=== PATIENT | male | born 1985 | race Hispanic/Latino ===

== ENCOUNTER 2017-03-21 14:35 | Emergency (ER) | payer OTHER ==
[~2017-03-21] VITALS: Ht 180.3 cm; Wt 74.8 kg
[~2017-03-21 14:35] MED LIST: AUGMENTIN 875 M1 TAB PO; LEVSIN0.125 MG PO; ZOFRAN4 MG PO
[2017-03-21 14:40] VITALS: BP 130/83
[2017-03-21] MEDS ORDERED: KEFLEX500 M1 PO (14:56)
--- NOTE | 2017-03-21 14:56 | ED NOSE COMPLAINT ---
History of Present Illness General Chief Complaint: Animal/Insect Bite Stated Complaint: ? SPIDER BITE TO NOSE/CELLULITIS Source: patient, old records Exam Limitations: no limitations Vital Signs & Intake/Output Vital Signs & Intake/Output ED Intake and Output 03/22 0000 03/21 1200 Intake Total 0 Output Total Balance 0 Intake, Oral 0 Patient 165 lb Weight Weight Reported by Patient Measurement Method Allergies Coded Allergies: NO KNOWN ALLERGIES (04/25/13) Triage Note: PT TO ED FOR ?CELLULITIS TO NOSE, STATING HE WOKE UP IN THE MIDDLE OF THE NIGHT AND FELT PAIN IN HIS NOSE, NOSE APPEARS SWOLLEN AND RED. Triage Nurses Notes Reviewed? yes Onset: Abrupt Duration: day(s): (1), constant Timing: remote history Injury Environment: home Severity: mild, moderate Severity Numbers: 5 No Modifying Factors: none Associated Symptoms: DENIES HPI: 31-year-old male presents to ER for evaluation complaining of pain redness swelling to the tip of his left nostril since this morning. He states he woke in the middle the night with pain and states he believes he is bit by something while in bed. He denies any pain inside of his nose, no difficulty breathing through his nose. He denies sore throat and rhinorrhea epistaxis fever chills. He denies any other facial pain or swelling no recent dental work. No modifying factors or associated symptoms otherwise. (PEÑA FLANAGAN) Reconcile Medications Cephalexin (Keflex) 500 MG CAPSULE 1 CAP PO TID PRN cellulitis Sulfamethoxazole/Trimethoprim (Bactrim Ds Tablet) 800 MG-160 MG TABLET 1 TAB PO BID CELLULITIS (DORINDA MUJICA,JAIRO) Past History Travel History Traveled to [place] past 21 day No Medical History Any Pertinent Medical History? see below for history Neurological: NONE EENT: NONE Cardiovascular: NONE Respiratory: NONE Gastrointestinal: NONE Hepatic: NONE Renal: NONE Musculoskeletal: NONE Psychiatric: NONE Endocrine: NONE Blood Disorders: NONE Cancer(s): leukemia Tetanus Vaccine: 11/09/14 Surgical History Surgical History: non-contributory Psychosocial History What is your primary language Chinese Tobacco Use: Never used ETOH Use: occasional use Illicit Drug Use: denies illicit drug use Family History Hx Contributory? No (PEÑA FLANAGAN) Review of Systems Review of Systems Constitutional: Reports: see HPI. All Other Systems: Reviewed and Negative Comments Review of systems: See HPI, All other systems negative. Constitutional, no chills no fever, no malaise HEENT:no sore throat no congestion, Cardiovascular: No chest pain , no palpitation , Skin: no rashes, no change in skin Respiratory: No dyspnea no cough no sputum GI: No nausea no vomiting, : No dysuria Muscle skeletal: No joint paiN, no neck pain, Neurologic: No numbness no confusion, no headache Psych: No stress Heme/endocrine: No bruising Immunology: No lymphadenopathy (PEÑA FLANAGAN) Physical Exam Physical Exam General Appearance: well developed/nourished, no apparent distress, alert, awake , comfortable Nose: ERYTHEMA OVER THE L EXTERNAL NOSTRIL, THE NOSTRIL IS WNL, NO HEMATOMA, NO ABSCESS Comments: Well-developed well-nourished patient in no apparent distress. Head/Face: Atraumatic, no maxillary/frontal sinus tenderness, no facial swelling Eyes: PERRL, EOMI, no conjunctival injection. Ear:External auditory canals clear, no erythema, no FB. Nose: atraumatic.Normal inspection: No bleeding, no septal hematoma Throat: Moist mucous membranes.Pharynx normal. No pharyngeal erythema/exudate seen. No stridor/drooling or assymetry. No swelling or edema. Neck: Supple, no lymphadenopathy, FROM Back: FROM Cardiovascular: Regular rate and rhythms no murmurs Respiratory: No respiratory distress. Patient speaking in full complete sentences. Breath sounds clear to auscultation bilaterally: NO W/R/R Extremities: full range of motion Neuro: awake, alert, and oriented to person, place and time. There were no obvious focal neurologic abnormalities. Skin: Warm & dry;No appreciable rash on exposed skin Psych: Mood affect normal, normal memory normal judgment. (PÑEA FLANAGAN) Progress Differential Diagnoses I considered the following diagnoses in my evaluation of the patient: Cellulitis shingles septal hematoma abscess Plan of Care: I discussed with the patient at length all of their results. I had an extensive conversation regarding need for close follow up with their primary care physician this week as well as return precautions. I answered all of their questions, they feel comfortable with the plan and follow-up care. I discussed with the patient/family the medications that they will receive. I gave them signs and symptoms that could indicate an adverse reaction. I have advised them to limit their activities until they can see how they respond to the medication. Initial ED EKG: none (PEÑA FLANAGAN) Departure Departure Time of Disposition: 1454 Disposition: HOME OR SELF CARE Condition: Stable Clinical Impression Primary Impression: Cellulitis Referrals: LINDSEY MEDINA DO (PCP/Family) Additional Instructions: Keflex as directed. Follow-up with your primary care physician or return to ER if the symptoms persist, he develop worsening pain redness warmth or swelling to her nose fevers or chills. this was sent to [facility] Departure Forms: Customer Survey General Discharge Information Prescriptions: Current Visit Scripts Cephalexin (Keflex) 1 CAP PO TID PRN cellulitis #21 CAP (PEÑA FLANAGAN) PA/COMMUNITY DEVELOPMENT PLANNER Co-Sign Statement Statement: ED Attending supervision documentation- I saw and evaluated the patient. I have also reviewed all the pertinent lab results and diagnostic results. I agree with the findings and the plan of care as documented in the PA's/COMMUNITY DEVELOPMENT PLANNER's documentation. X I have reviewed the ED Record and agree with the PA's/COMMUNITY DEVELOPMENT PLANNER's documentation. [] Additions or exceptions (if any) to the PAs/COMMUNITY DEVELOPMENT PLANNER's note and plan are summarized below: [] (DORINDA MUJICA,JAIRO)
[2017-03-21] MEDS ORDERED: BACTRIM DS TAB1 EACH PO (22:51)
== END 2017-03-21 14:57 ==
LOC: ERH 14:35
DX: J34.0 Abscess, furuncle and carbuncle of nose (principal)

== ENCOUNTER 2017-03-21 21:27 | Emergency (ER) | payer OTHER ==
[~2017-03-21 21:27] MED LIST changes: +KEFLEX500 M1 PO
--- NOTE | 2017-03-21 21:59 | ED SKIN/ALLERGY COMPLAINT ---
History of Present Illness General Chief Complaint: Skin Rash/ Abcess Stated Complaint: HERE EARLIER W/ CELLULITIS, NOW FEVER, WORSE Source: patient, old records Exam Limitations: no limitations Vital Signs & Intake/Output Vital Signs & Intake/Output Vital Signs Date Time Temp Pulse Resp B/P B/P Pulse O2 O2 Flow FiO2 Mean Ox Delivery Rate 03/21 2336 97.9 94 20 127/64 96 Room Air 03/21 2218 99.4 03/21 2134 98.9 108 22 145/91 97 Room Air ED Intake and Output 03/22 0000 03/21 1200 Intake Total 100 Output Total Balance 100 Intake, IV 100 Patient 165 lb Weight Allergies Coded Allergies: NO KNOWN ALLERGIES (04/25/13) Reconcile Medications Cephalexin (Keflex) 500 MG CAPSULE 1 CAP PO TID PRN cellulitis Sulfamethoxazole/Trimethoprim (Bactrim Ds Tablet) 800 MG-160 MG TABLET 1 TAB PO BID CELLULITIS Triage Note: PER PT SEEN EARLIER FOR NASAL CELLULITIS, FEELS WORSE SPREADING INTO FACE Triage Nurses Notes Reviewed? yes Onset: Abrupt Duration: day(s): (2) Timing: single episode today Severity: mild No Modifying Factors: none HPI: This is a 31-year-old male, active daily smoker presents to the ER for chief complaint of worsening pain and swelling to the left nares. He was seen earlier today and diagnosed with facial sialitis. He states he took a dose of cephalexin and 43 and a question 9 today. Feels the pain is getting worse. Had a fever of 101.5 at home, temp of 99 on arrival. Denies any history of diabetes. Denies any chills. No history of facial sialitis. He thinks he might have been bitten by a bug on his nose 2 days ago. Nothing is actively draining nor is he tried to drain anything from it. Past History Travel History Traveled to [place] past 21 day No Medical History Any Pertinent Medical History? see below for history Neurological: NONE EENT: NONE Cardiovascular: NONE Respiratory: NONE Gastrointestinal: NONE Hepatic: NONE Renal: NONE Musculoskeletal: NONE Psychiatric: NONE Endocrine: NONE Blood Disorders: NONE Cancer(s): leukemia Tetanus Vaccine: 11/09/14 Surgical History Surgical History: non-contributory Psychosocial History What is your primary language Japanese Tobacco Use: Current Daily Use Daily Tobacco Use Amount/Type: => 5 Cigarettes daily Family History Hx Contributory? No Review of Systems Review of Systems Constitutional: Reports: fever. EENTM: Reports: no symptoms. Respiratory: Reports: no symptoms. Cardiovascular: Reports: no symptoms. GI: Reports: no symptoms. Genitourinary: Reports: no symptoms. Musculoskeletal: Reports: no symptoms. Skin: Reports: erythema. Neurological/Psychological: Reports: no symptoms. Hematologic/Endocrine: Reports: no symptoms. Immunologic/Allergic: Reports: no symptoms. All Other Systems: Reviewed and Negative Physical Exam Physical Exam General Appearance: well developed/nourished, alert, awake, mild distress Head: CELLULITIS LEFT NARE, NO ABSCESS Eyes: Bilateral: PERRL, EOMI. Ears, Nose, Throat: normal pharynx, normal ENT inspection, hearing grossly normal Neck: normal inspection, supple Respiratory: normal breath sounds Cardiovascular: regular rate/rhythm Back: normal inspection Extremities: normal inspection, normal range of motion, no edema Neurologic/Psych: awake, alert, oriented x 3, normal mood/affect Skin: intact, normal color, warm/dry Skin Problem Location: face Skin Problem Character: LEFT NARE Lymphatic: no anterior cervical janette Progress Differential Diagnosis: CELLULITIS Plan of Care: Orders Procedure Date/time Status BLOOD CULTURE 03/21 2138 Active COMPREHENSIVE METABOLIC PANEL 03/21 2138 Complete CBC WITHOUT DIFFERENTIAL 03/21 2138 Complete Laboratory Tests 03/21/172212: Anion Gap 12, Estimated GFR > 60, BUN/Creatinine Ratio 11.0, Glucose 97, Calcium 8.9, Total Bilirubin 0.7, AST 33, ALT 39, Alkaline Phosphatase 77, Total Protein 7.6, Albumin 4.2, Globulin 3.4, Albumin/Globulin Ratio 1.2, CBC w Diff NO MAN DIFF REQ, RBC 5.18, MCV 87.4, MCH 29.7, RDW 13.4, MPV 7.7, Gran % 75.2, Lymphocytes % 13.1 L, Monocytes % 5.0, Eosinophils % 5.8 H, Basophils % 0.9, Absolute Granulocytes 8.0 H, Absolute Lymphocytes 1.4, Absolute Monocytes 0.5, Absolute Eosinophils 0.6, Absolute Basophils 0.1, PUBS MCHC 34.0 Microbiology 03/21 2220 BLOOD: Blood Culture - RECD 03/21 2213 BLOOD: Blood Culture - RECD UNASYN, TORADOL ORDERED (HERBERT MUJICA,JUAN ANTONIO) Departure Departure Disposition: HOME OR SELF CARE Condition: Stable Clinical Impression Primary Impression: Facial cellulitis Referrals: LINDSEY MEDINA DO (PCP/Family) Additional Instructions: Continue the Keflex. Take the Bactrim as directed. Please return tomorrow for a wound check. Tylenol or Motrin as needed for pain or fever. Departure Forms: Customer Survey General Discharge Information Prescriptions: Current Visit Scripts Sulfamethoxazole/Trimethoprim (Bactrim Ds Tablet) 1 TAB PO BID #19 TAB
[2017-03-21 22:33] LABS: ABSOLUTE BASOPHIL COUNT 0.1 /CUMM (0.0-0.2); ABSOLUTE EOSINOPHIL COUNT 0.6 /CUMM (0.0-0.7); ABSOLUTE LYMPH COUNT 1.4 /CUMM (1.2-3.4); ABSOLUTE MONOCYTE COUNT 0.5 /CUMM (0.10-0.60); BASOPHIL % 0.9 % (0.0-2.0); EOSINOPHIL % 5.8 % (0-5); HEMATOCRIT 45.2 % (42-52); MEAN CORPUSCULAR HGB 29.7 PG (27.0-31.0); MEAN CORPUSCULAR VOLUME 87.4 FL (80.0-94.0); MEAN PLATELET VOLUME 7.7 FL (7.4-10.4); PLATELET COUNT 268 /CUMM (130-400); RBC DISTRIBUTION WIDTH 13.4 % (11.5-14.5); RED BLOOD CELL CT 5.18 /CUMM (4.70-6.10); WHITE BLOOD CELL COUNT 10.6 /CUMM (4.8-10.8)
[2017-03-21 22:36] LABS: GRANULOCYTE % 75.2 % (42.2-75.2)
[2017-03-21] MEDS ORDERED: BACTRIM DS TAB1 EACH PO (22:51)
[2017-03-21 23:36] VITALS: BP 127/64
== END 2017-03-21 23:37 ==
LOC: ERH 21:27
PROVIDERS: Emergency Medicine
DX: L03.211 Cellulitis of face (principal)
CPT/HCPCS: 87040; 96374; 96375; J1885

== ENCOUNTER 2018-04-29 09:51 | Emergency (ER) | payer OTHER ==
[~2018-04-29] VITALS: Ht 180.3 cm; Wt 70.3 kg
[~2018-04-29 09:51] MED LIST changes: +BACTRIM DS TAB1 EACH PO
[2018-04-29 10:01] VITALS: BP 128/81
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
[2018-04-29] MEDS ORDERED: AUGMENTIN 875-1 EACH PO (10:48)
[2018-04-29 10:53] LABS: ABSOLUTE BASOPHIL COUNT 0.1 /CUMM (0.0-0.2); ABSOLUTE EOSINOPHIL COUNT 0.7 /CUMM (0.0-0.7); ABSOLUTE GRANULOCYTE CT 3.7 /CUMM (1.4-6.5); ABSOLUTE LYMPH COUNT 1.9 /CUMM (1.2-3.4); ABSOLUTE MONOCYTE COUNT 0.6 /CUMM (0.10-0.60); BASOPHIL % 0.9 % (0.0-2.0); EOSINOPHIL % 9.8 % (0-5); GRANULOCYTE % 53.7 % (42.2-75.2); HEMATOCRIT 45.4 % (42-52); MEAN CORPUSCULAR HGB 29.7 PG (27.0-31.0); MEAN CORPUSCULAR HGB CONC 33.7 G/DL (33.0-37.0); MEAN CORPUSCULAR VOLUME 88.3 FL (80.0-94.0); MEAN PLATELET VOLUME 7.7 FL (7.4-10.4); PLATELET COUNT 278 /CUMM (130-400); RED BLOOD CELL CT 5.14 /CUMM (4.70-6.10)
== END 2018-04-29 12:05 ==
LOC: ERH 09:51
PROVIDERS: Physician Assistant
DX: S41.152A Open bite of left upper arm, initial encounter (principal); Y04.1XXA Assault by human bite, initial encounter; Y92.239 Unspecified place in hospital as the place of occurrence of the external cause; Y93.89 Activity, other specified
CPT/HCPCS: 86803; 87389

== ENCOUNTER 2018-05-29 07:22 | Emergency (ER) | payer OTHER ==
[~2018-05-29] VITALS: Ht 180.3 cm; Wt 72.6 kg
[~2018-05-29 07:22] MED LIST changes: +AUGMENTIN 875-1 EACH PO
[2018-05-29 07:35] VITALS: BP 121/86
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
[2018-05-29 08:37] LABS: ABSOLUTE BASOPHIL COUNT 0 /CUMM (0.0-0.2); ABSOLUTE EOSINOPHIL COUNT 0.6 /CUMM (0.0-0.7); ABSOLUTE GRANULOCYTE CT 3.1 /CUMM (1.4-6.5); ABSOLUTE LYMPH COUNT 1.5 /CUMM (1.2-3.4); ABSOLUTE MONOCYTE COUNT 0.4 /CUMM (0.10-0.60); BASOPHIL % 0.7 % (0.0-2.0); EOSINOPHIL % 10.7 % (0-5); GRANULOCYTE % 54.6 % (42.2-75.2); HEMATOCRIT 46.2 % (42-52); MEAN CORPUSCULAR HGB 29.7 PG (27.0-31.0); MEAN CORPUSCULAR VOLUME 87.3 FL (80.0-94.0); MEAN PLATELET VOLUME 7.8 FL (7.4-10.4); PLATELET COUNT 260 /CUMM (130-400); RBC DISTRIBUTION WIDTH 14.1 % (11.5-14.5); WHITE BLOOD CELL COUNT 5.7 /CUMM (4.8-10.8)
== END 2018-05-29 09:33 ==
LOC: ERH 07:22
PROVIDERS: Emergency Medicine
DX: Z77.21 Contact with and (suspected) exposure to potentially hazardous body fluids (principal); X58.XXXA Exposure to other specified factors, initial encounter; Y93.89 Activity, other specified
CPT/HCPCS: 86803; 87389